=== PATIENT | male | born 1995 | race Hispanic/Latino ===

== ENCOUNTER 2022-06-09 22:19 | Emergency (ER) | payer BC ==
[~2022-06-09] VITALS: Ht 177.8 cm; Wt 90.7 kg
[2022-06-09] MEDS ORDERED: CYCLOBENZAPRINE10 MG PO ×2 (23:01→23:52)
[2022-06-09] MEDS ORDERED: ONDANSETRON ODT8 MG PO (23:52)
== END 2022-06-10 00:15 | disposition home or self-care (01) ==
LOC: ED 22:19
DX: J10.1 Influenza due to other identified influenza virus with other respiratory manifestations (principal); Z20.822 Contact with and (suspected) exposure to COVID-19; Z79.899 Other long term (current) drug therapy
CPT/HCPCS: 87502; 96374; 96375; 99283-25; A9270; C9803; J1885; J2405; J7121; U0003